=== PATIENT | male | born 1990 | race African-American/Black ===

== ENCOUNTER 2017-11-12 08:35 | Emergency (ER) | payer SELFPAY ==
[~2017-11-12] VITALS: Ht 162.5 cm; Wt 83.0 kg
[2017-11-12 08:35] VITALS: BP 159/96
[~2017-11-12 08:35] MED LIST: ZITHROMAX250 MG PO
[2017-11-12] MEDS ORDERED: AMOXICILLIN500 M2 PO (08:48)
== END 2017-11-12 09:00 | disposition home or self-care (01) ==
LOC: ED 08:35
DX: J02.9 Acute pharyngitis, unspecified (principal); J32.9 Chronic sinusitis, unspecified; Z88.8 Allergy status to other drugs, medicaments and biological substances; F17.200 Nicotine dependence, unspecified, uncomplicated

== ENCOUNTER 2018-05-29 17:17 | Emergency (ER) | payer SELFPAY ==
[~2018-05-29] VITALS: Ht 162.5 cm; Wt 86.2 kg
[~2018-05-29 17:17] MED LIST changes: +AMOXICILLIN500 M2 PO
[2018-05-29 17:20] VITALS: BP 139/72
[2018-05-29 19:08] LABS: BASO % 0.2 % (0.0-1.0); EOS # 0.2 10*3/uL (0.0-0.4); EOS % 1.5 % (1.0-4.0); HEMATOCRIT 44.3 % (42.0-52.0); HEMOGLOBIN 15.5 g/dl (14.0-18.0); LYMPH # 1.7 10*3/uL (1.3-4.4); LYMPH % 13.6 % (27.0-41.0); MEAN CELL VOLUME 79.2 fl (80.0-94.0); MEAN CORPUSCULAR HGB 27.7 pg (27.0-31.0); MEAN PLATELET VOLUME 8.8 fl (9.6-12.3); MONO # 0.6 10*3/uL (0.1-1.0); MONO % 5.3 % (3.0-9.0); NEUT # 9.6 10*3/uL (2.3-7.9); NEUT % 79.1 % (47.0-73.0); PLATELET COUNT AUTOMATED 303 10*3/uL (130-400); RED BLOOD COUNT 5.59 10*6/uL (4.50-5.90); RED CELL DISTRI WIDTH 14.1 % (0-14.5); WHITE BLOOD COUNT 12.1 10*3/uL (4.8-10.8)
[2018-05-29 19:23] LABS: ALBUMIN 3.8 gm/dl (3.1-4.5); ALKALINE PHOSPHATASE 54 U/L (45-117); BUN 16 mg/dl (7-24); CHLORIDE 105 mmol/L (98-107); CREATININE 1.27 mg/dL (0.70-1.30); LIPASE 72 U/L (73-393); POTASSIUM 4.4 mmol/L (3.5-5.1); SGOT/AST 16 IU/L (3-35); SGPT/ALT 35 U/L (12-78); SODIUM 141 mmol/L (136-145); TOTAL PROTEIN 7.7 gm/dL (6.4-8.2)
[2018-05-29] MEDS ORDERED: CYCLOBENZAPRINE5 M3 PO (19:45)
[2018-05-29] MEDS ORDERED: Motrin,Rufen800 MG PO (19:45)
== END 2018-05-29 20:00 | disposition home or self-care (01) ==
LOC: ED 17:17
PROVIDERS: Physician Assistant
DX: M54.6 Pain in thoracic spine (principal); Z88.8 Allergy status to other drugs, medicaments and biological substances

== ENCOUNTER 2018-05-31 23:38 | Inpatient (IN) | payer SELFPAY ==
--- NOTE | ~2018-05-31 | O ---
[place], [place] OPERATIVE NOTE NAME: VANESA DUMONT [facility] #: [id number] UNIT #: [id number] ROOM: [facility] DOCTOR: ADRIAN FERGUSON MD BIRTHDATE: [birth year] DOS: 06/01/2018 PREOPERATIVE DIAGNOSIS: Acute cholecystitis. POSTOPERATIVE DIAGNOSIS: Acute cholecystitis. PROCEDURE: Laparoscopic cholecystectomy. SURGEON: Adrian Ferguson MD [employer] INDUSTRIAL ENGINEER: CHRIS. ANESTHESIA: General with endotracheal intubation. INDICATIONS: This is a 28-year-old -[place] gentleman who was admitted with right upper quadrant abdominal pain and was found to have acute cholecystitis. It was decided to take the patient to the operating room for the above-mentioned procedure. The procedure and its complications were explained to the patient in detail preoperatively. Complications that were discussed included, but were not limited to bleeding, infection, hematoma/seroma/abscess formation, prolonged postoperative pain, biloma formation, inadvertent injury to common bile duct, and incisional hernia formation, he agreed to proceed. DESCRIPTION OF PROCEDURE: After identifying the patient, the patient was brought to the operating suite and laid in the supine position. After time-out procedure was called, general anesthesia was induced by the anesthesia team and the parts were then painted and draped in the usual sterile fashion. An incision below the umbilicus was made. The skin and the subcutaneous tissue were incised in the line of the incision. The fascia was incised and 2 stay sutures with 0 Vicryl were taken on either side. A 12 mm Denny port was introduced and a pneumoperitoneum was created. Under direct vision, an epigastric incision of 10 mm and two 5 mm incisions were made in the right upper quadrant and appropriate size ports were introduced. The gallbladder was retracted superiorly and laterally. There was a lot of edema and inflammation on the gallbladder and in order to better grasp the gallbladder, approximately 50 mL of bile was aspirated from the gallbladder. The gallbladder was then retracted superiorly and laterally. In order to better visualize the cystic duct and the cystic artery, the top-down procedure to mobilize the gallbladder was employed. Thereafter, the cystic artery and the cystic duct were meticulously dissected and each of these structures were clipped 3 times and cut between the first and the second clip. The gallbladder was then removed from the bed of the gallbladder with the help of electrocautery. It was placed in an EndoCatch bag and removed from the peritoneal cavity and sent for histopathological diagnosis. Saline was used for irrigation in the liver bed and hemostasis was achieved with the help of electrocautery. Thereafter, in order to have better hemostasis, strip of Surgicel was placed in the liver bed. After hemostasis was confirmed, the irrigation fluid was sucked away and again, there was no bleeding seen in the liver bed. Thereafter, under direct vision, the right upper quadrant and the epigastric ports were removed and there was no bleeding seen. The umbilical port was removed and the pneumoperitoneum was [place], [place] OPERATIVE NOTE NAME: VANESA DUMONT UNIT #: [id number] ROOM: [facility] DOCTOR: ADRIAN FERGUSON MD BIRTHDATE: [birth year] decompressed. The stay sutures were tied together and an additional 0 Vicryl suture was taken in a [id number] fashion to close the fascial defect. The edges of the skin were infiltrated with 1% plain lidocaine and approximated with the help of 4-0 Vicryl in a subcuticular running fashion. Dressings were placed on all the four incisions and the patient was extubated uneventfully and brought back to the recovery in a stable fashion. There were no complications. Blood loss was [address] Adrian Ferguson, the attending surgeon, was present throughout the operating case. Adrian Ferguson MD CM:OPRECORD:OPERATIVE NOTE [id number] ADRIAN FERGUSON MD 06/01/18 1140 interface
[~2018-05-31 23:38] MED LIST changes: +CYCLOBENZAPRINE5 M3 PO; +Motrin,Rufen800 MG PO
[2018-05-31 23:44] VITALS: BP 135/95
[2018-06-01] VITALS (11 sets, daily range): BP systolic 118–139; BP diastolic 56–84
[2018-06-01 00:26] LABS: HEMATOCRIT 42.3 % (42.0-52.0); HEMOGLOBIN 15.1 g/dl (14.0-18.0); MEAN CELL VOLUME 77.8 fl (80.0-94.0); MEAN CORPUSCULAR HGB 27.8 pg (27.0-31.0); MEAN CORPUSCULAR HGB CONC 35.7 g/dl (33.0-37.0); MEAN PLATELET VOLUME 9.3 fl (9.6-12.3); PLATELET COUNT AUTOMATED 276 10*3/uL (130-400); RED BLOOD COUNT 5.44 10*6/uL (4.50-5.90); RED CELL DISTRI WIDTH 13.8 % (0-14.5); WHITE BLOOD COUNT 16.3 10*3/uL (4.8-10.8)
[2018-06-01 00:40] LABS: ACT PARTIAL THROMBO TIME 28.6 SECONDS (20.8-31.5)
[2018-06-01 00:42] LABS: BILIRUBIN NEGATIVE (NEGATIVE); BLOOD NEGATIVE (NEGATIVE); CLARITY CLEAR (CLEAR); COLOR YELLOW (YELLOW); GLUCOSE NEGATIVE (NEGATIVE); KETONE NEGATIVE (NEGATIVE); LEUKO ESTERASE NEGATIVE (NEGATIVE); NITRITE NEGATIVE (NEGATIVE); SPECIFIC GRAVITY >= 1.030 (1.005-1.030)
[2018-06-01 00:43] LABS: ALBUMIN 3.4 gm/dl (3.1-4.5); ALKALINE PHOSPHATASE 67 U/L (45-117); BUN 13 mg/dl (7-24); CHLORIDE 104 mmol/L (98-107); CREATININE 1.18 mg/dL (0.70-1.30); LIPASE 56 U/L (73-393); SGOT/AST 36 IU/L (3-35); SGPT/ALT 91 U/L (12-78); SODIUM 136 mmol/L (136-145); TOTAL PROTEIN 7.8 gm/dL (6.4-8.2)
[2018-06-01 00:55] LABS: MUCOUS TRACE
[2018-06-01 01:02] LABS: ATYPICAL LYMPHS 1 % (0-0); PLATELET SUFFICIENCY NORMAL (NORMAL); TOTAL CELLS COUNTED 100 #CELLS
[2018-06-01 07:40] LABS: HEMATOCRIT 39.5 % (42.0-52.0); HEMOGLOBIN 14.1 g/dl (14.0-18.0); MEAN CELL VOLUME 77.9 fl (80.0-94.0); MEAN CORPUSCULAR HGB 27.8 pg (27.0-31.0); MEAN CORPUSCULAR HGB CONC 35.7 g/dl (33.0-37.0); MEAN PLATELET VOLUME 9.3 fl (9.6-12.3); PLATELET COUNT AUTOMATED 244 10*3/uL (130-400); RED BLOOD COUNT 5.07 10*6/uL (4.50-5.90); RED CELL DISTRI WIDTH 13.7 % (0-14.5); WHITE BLOOD COUNT 12.9 10*3/uL (4.8-10.8)
[2018-06-01 07:53] LABS: BUN 11 mg/dl (7-24); CHLORIDE 104 mmol/L (98-107); CHOLESTEROL 109 mg/dL (<200); CREATININE 1.13 mg/dL (0.70-1.30); HDL CHOLESTEROL 46 mg/dl (40-60); LDL CHOLESTEROL 50 mg/dL (9-159); PHOSPHOROUS 2.7 mg/dL (2.5-4.9); SODIUM 136 mmol/L (136-145); TRIGLYCERIDES 67 mg/dl (<150); VLDL CHOLESTEROL 13 mg/dL (6-40)
[2018-06-01 08:25] LABS: ATYPICAL LYMPHS 1 % (0-0); PLATELET SUFFICIENCY NORMAL (NORMAL); TOTAL CELLS COUNTED 100 #CELLS
[2018-06-02] VITALS: BP 142/83
[2018-06-02 07:11] LABS: HEMATOCRIT 35.8 % (42.0-52.0); HEMOGLOBIN 12.1 g/dl (14.0-18.0); MEAN CELL VOLUME 79.7 fl (80.0-94.0); MEAN CORPUSCULAR HGB 26.9 pg (27.0-31.0); MEAN CORPUSCULAR HGB CONC 33.8 g/dl (33.0-37.0); MEAN PLATELET VOLUME 9.3 fl (9.6-12.3); PLATELET COUNT AUTOMATED 234 10*3/uL (130-400); RED BLOOD COUNT 4.49 10*6/uL (4.50-5.90); RED CELL DISTRI WIDTH 13.9 % (0-14.5); WHITE BLOOD COUNT 17.6 10*3/uL (4.8-10.8)
[2018-06-02 07:44] LABS: ALBUMIN 2.9 gm/dl (3.1-4.5); BUN 14 mg/dl (7-24); CHLORIDE 109 mmol/L (98-107); CREATININE 1.13 mg/dL (0.70-1.30); PHOSPHOROUS 2.7 mg/dL (2.5-4.9); POTASSIUM 4.2 mmol/L (3.5-5.1); SGOT/AST 39 IU/L (3-35); SGPT/ALT 116 U/L (12-78); SODIUM 140 mmol/L (136-145)
[2018-06-02 07:46] LABS: ALKALINE PHOSPHATASE 77 U/L (45-117); TOTAL PROTEIN 6.6 gm/dL (6.4-8.2)
[2018-06-02 08:00] VITALS: BP 122/64
[2018-06-02 08:10] LABS: PLATELET SUFFICIENCY NORMAL (NORMAL); TOTAL CELLS COUNTED 100 #CELLS
[2018-06-02] MEDS ORDERED: NORCO 5-325 TA1 EACH PO (11:13)
== END 2018-06-02 14:34 | disposition home or self-care (01) | DRG 854 ==
LOC: ED 23:38 → EDHOLD 06-01 02:43 → 5E 06-01 03:12
PROVIDERS: Physician Assistant; Student in an Organized Health Care Education/Training Program; Surgery; ADMIT Emergency Medicine
PROC: 0FT44ZZ Resection of Gallbladder, Percutaneous Endoscopic Approach (ICD-10-PCS; principal; 2018-06-01)
DX: A41.9 Sepsis, unspecified organism (principal); K80.00 Calculus of gallbladder with acute cholecystitis without obstruction; R65.20 Severe sepsis without septic shock; R73.9 Hyperglycemia, unspecified; J45.20 Mild intermittent asthma, uncomplicated; Z88.8 Allergy status to other drugs, medicaments and biological substances; Z82.3 Family history of stroke; Z80.9 Family history of malignant neoplasm, unspecified; Z87.891 Personal history of nicotine dependence; Z82.5 Family history of asthma and other chronic lower respiratory diseases; Z83.49 Family history of other endocrine, nutritional and metabolic diseases; Z83.3 Family history of diabetes mellitus

== ENCOUNTER 2018-12-26 02:26 | Emergency (ER) | payer SELFPAY ==
[~2018-12-26] VITALS: Ht 162.5 cm; Wt 90.7 kg
[~2018-12-26 02:26] MED LIST changes: +NORCO 5-325 TA1 EACH PO
[2018-12-26 02:27] VITALS: BP 155/87
[2018-12-26 03:07] LABS: BASO # 0.1 10*3/uL (0.0-0.1); BASO % 0.4 % (0.0-1.0); EOS # 0.6 10*3/uL (0.0-0.4); EOS % 4.5 % (1.0-4.0); HEMATOCRIT 45.4 % (42.0-52.0); HEMOGLOBIN 15.8 g/dl (14.0-18.0); LYMPH # 3.6 10*3/uL (1.3-4.4); LYMPH % 27.5 % (27.0-41.0); MEAN CELL VOLUME 78.3 fl (80.0-94.0); MEAN CORPUSCULAR HGB 27.2 pg (27.0-31.0); MEAN CORPUSCULAR HGB CONC 34.8 g/dl (33.0-37.0); MEAN PLATELET VOLUME 9.2 fl (9.6-12.3); MONO # 0.9 10*3/uL (0.1-1.0); MONO % 7.2 % (3.0-9.0); NEUT # 7.8 10*3/uL (2.3-7.9); NEUT % 60.1 % (47.0-73.0); PLATELET COUNT AUTOMATED 328 10*3/uL (130-400)
[2018-12-26 03:18] LABS: BUN 11 mg/dl (7-24); CHLORIDE 107 mmol/L (98-107); CREATININE 1.24 mg/dL (0.70-1.30); POTASSIUM 4.3 mmol/L (3.5-5.1); SODIUM 140 mmol/L (136-145)
[2018-12-26] MEDS ORDERED: PROAIR HFA8.5 GM INH (04:25)
[2018-12-26] MEDS ORDERED: AVPAK AZITHROM250 M1 PO (04:25)
[2018-12-26] MEDS ORDERED: PREDNISONE50 MG PO (04:25)
== END 2018-12-26 04:42 | disposition home or self-care (01) ==
LOC: ED 02:26
PROVIDERS: Internal Medicine
DX: J45.909 Unspecified asthma, uncomplicated (principal); Z88.8 Allergy status to other drugs, medicaments and biological substances; Z87.891 Personal history of nicotine dependence

== ENCOUNTER → 2020-07-28 | Outpatient (CLI) | payer BC ==
[~2020-07-28] MED LIST changes: +AVPAK AZITHROM250 M1 PO; +PREDNISONE50 MG PO; +PROAIR HFA8.5 GM INH
== END | disposition home or self-care (01) ==
LOC: COVID19 14:59
PROVIDERS: ATTEND Internal Medicine
DX: Z20.822 Contact with and (suspected) exposure to COVID-19 (principal)

== ENCOUNTER 2020-10-14 22:41 | Emergency (ER) | payer BC ==
[~2020-10-14] VITALS: Wt 93.0 kg
[2020-10-14 22:44] VITALS: BP 141/89
[2020-10-14] MEDS ORDERED: PREDNISONE10 M1 PO (23:46)
== END 2020-10-15 00:11 | disposition home or self-care (01) ==
LOC: ED 22:41
DX: J45.901 Unspecified asthma with (acute) exacerbation (principal); Z88.8 Allergy status to other drugs, medicaments and biological substances; Z98.890 Other specified postprocedural states

== ENCOUNTER 2021-06-15 21:07 | Emergency (ER) | payer BC ==
[~2021-06-15] VITALS: Ht 160 cm; Wt 90.7 kg
[~2021-06-15 21:07] MED LIST changes: +PREDNISONE10 M1 PO
[2021-06-15 21:28] VITALS: BP 136/85
[2021-06-15] MEDS ORDERED: PENICILLIN VK500 MG PO (21:39)
== END 2021-06-15 22:05 | disposition home or self-care (01) ==
LOC: ED 21:07
DX: K04.7 Periapical abscess without sinus (principal); K02.9 Dental caries, unspecified; Z88.8 Allergy status to other drugs, medicaments and biological substances; Z90.49 Acquired absence of other specified parts of digestive tract; Z87.891 Personal history of nicotine dependence

== ENCOUNTER 2021-06-17 18:18 | Emergency (ER) | payer BC ==
[~2021-06-17] VITALS: Wt 90.7 kg
[~2021-06-17 18:18] MED LIST changes: +PENICILLIN VK500 MG PO
[2021-06-17 18:38] VITALS: BP 136/101
== END 2021-06-17 19:04 | disposition home or self-care (01) ==
LOC: ED 18:18
DX: S02.5XXA Fracture of tooth (traumatic), initial encounter for closed fracture (principal); Z88.8 Allergy status to other drugs, medicaments and biological substances; Z87.891 Personal history of nicotine dependence; X58.XXXA Exposure to other specified factors, initial encounter; Y93.89 Activity, other specified; Y92.89 Other specified places as the place of occurrence of the external cause; Y99.8 Other external cause status

== ENCOUNTER 2022-03-30 09:55 | Emergency (ER) | payer SELFPAY ==
[~2022-03-30] VITALS: Ht 160 cm; Wt 91.2 kg
[2022-03-30 10:11] VITALS: BP 127/88
[2022-03-30 11:42] LABS: BASO % 0.3 % (0.0-1.0); EOS # 0.3 10*3/uL (0.0-0.4); EOS % 2.8 % (1.0-4.0); HEMATOCRIT 43.8 % (42.0-52.0); LYMPH # 0.8 10*3/uL (1.3-4.4); LYMPH % 8.4 % (27.0-41.0); MEAN CELL VOLUME 76.7 fl (80.0-94.0); MEAN CORPUSCULAR HGB 26.6 pg (27.0-31.0); MEAN CORPUSCULAR HGB CONC 34.7 g/dl (33.0-37.0); MONO # 0.7 10*3/uL (0.1-1.0); MONO % 7.1 % (3.0-9.0); NEUT # 8.1 10*3/uL (2.3-7.9); NEUT % 81.1 % (47.0-73.0); PLATELET COUNT AUTOMATED 283 10*3/uL (130-400); RED BLOOD COUNT 5.71 10*6/uL (4.50-5.90); WHITE BLOOD COUNT 9.9 10*3/uL (4.8-10.8)
[2022-03-30 11:53] LABS: ACT PARTIAL THROMBO TIME 27.1 SECONDS (20.0-32.1)
[2022-03-30 11:56] LABS: ALKALINE PHOSPHATASE 58 U/L (46-116); BUN 7 mg/dl (9-23); CHLORIDE 105 mmol/L (98-107); CREATININE 1.25 mg/dL (0.70-1.30); POTASSIUM 3.7 mmol/L (3.4-5.1); SGPT/ALT 16 U/L (10-49); SODIUM 138 mmol/L (136-145)
[2022-03-30] MEDS ORDERED: PROVENTIL HFA6.7 GM INH (13:18)
[2022-03-30] MEDS ORDERED: AEROECLIPSE II1 EACH MC (13:18)
[2022-03-30] MEDS ORDERED: VENTOLIN 02.5 MG/3 M INH (13:18)
[2022-03-30] MEDS ORDERED: PREDNISONE50 MG PO (13:18)
== END 2022-03-30 13:35 | disposition home or self-care (01) ==
LOC: ED 09:55
PROVIDERS: Emergency Medicine
DX: B34.9 Viral infection, unspecified (principal); Z20.822 Contact with and (suspected) exposure to COVID-19; J45.901 Unspecified asthma with (acute) exacerbation; Z87.891 Personal history of nicotine dependence; Z90.49 Acquired absence of other specified parts of digestive tract; Z88.8 Allergy status to other drugs, medicaments and biological substances

== ENCOUNTER 2022-03-31 05:36 | Inpatient (IN) | payer SELFPAY ==
[2022-03-31] VITALS (8 sets, daily range): BP systolic 128–147; BP diastolic 66–81
[~2022-03-31] VITALS: Ht 160 cm; Wt 95.4 kg
[~2022-03-31 05:36] MED LIST changes: +AEROECLIPSE II1 EACH MC; +PROVENTIL HFA6.7 GM INH; +VENTOLIN 02.5 MG/3 M INH
[2022-03-31 06:45] LABS: BASO % 0.2 % (0.0-1.0); LYMPH # 0.6 10*3/uL (1.3-4.4); LYMPH % 5.6 % (27.0-41.0); MEAN CELL VOLUME 77.9 fl (80.0-94.0); MEAN CORPUSCULAR HGB 26.8 pg (27.0-31.0); MEAN CORPUSCULAR HGB CONC 34.4 g/dl (33.0-37.0); MEAN PLATELET VOLUME 9.2 fl (9.6-12.3); MONO # 1.1 10*3/uL (0.1-1.0); MONO % 9.9 % (3.0-9.0); NEUT # 9.1 10*3/uL (2.3-7.9); PLATELET COUNT AUTOMATED 277 10*3/uL (130-400); RED BLOOD COUNT 5.78 10*6/uL (4.50-5.90); WHITE BLOOD COUNT 10.9 10*3/uL (4.8-10.8)
[2022-03-31 07:30] LABS: ABG BASE EXCESS -1.2 mmol/L (-2.0-2.0); ARTERIAL BLOOD GAS PH 7.393 (7.35-7.45); ARTERIAL BLOOD GAS PO2 66.5 (80-90)
[2022-03-31 08:09] LABS: ALKALINE PHOSPHATASE 55 U/L (46-116); BUN 9 mg/dl (9-23); CHLORIDE 103 mmol/L (98-107); CREATININE 1.33 mg/dL (0.70-1.30); POTASSIUM 3.6 mmol/L (3.4-5.1); SGPT/ALT 26 U/L (10-49); SODIUM 139 mmol/L (136-145)
[2022-03-31 08:10] LABS: TOTAL PROTEIN 7.6 gm/dL (6.0-8.0)
[2022-03-31 18:57] LABS: ABG BASE EXCESS -3.5 mmol/L (-2.0-2.0); ARTERIAL BLOOD GAS PH 7.345 (7.35-7.45); ARTERIAL BLOOD GAS PO2 136.1 (80-90)
[2022-04-01] VITALS: BP 138/75
[2022-04-01 04:00] VITALS: BP 120/67
[2022-04-01 06:00] LABS: BASO % 0.1 % (0.0-1.0); HEMATOCRIT 41.3 % (42.0-52.0); LYMPH # 0.8 10*3/uL (1.3-4.4); LYMPH % 5.9 % (27.0-41.0); MEAN CELL VOLUME 78.4 fl (80.0-94.0); MEAN CORPUSCULAR HGB 26.9 pg (27.0-31.0); MEAN CORPUSCULAR HGB CONC 34.4 g/dl (33.0-37.0); MEAN PLATELET VOLUME 9.2 fl (9.6-12.3); MONO # 0.9 10*3/uL (0.1-1.0); MONO % 6.5 % (3.0-9.0); NEUT # 11.8 10*3/uL (2.3-7.9); NEUT % 87.2 % (47.0-73.0); PLATELET COUNT AUTOMATED 269 10*3/uL (130-400); RED BLOOD COUNT 5.27 10*6/uL (4.50-5.90); RED CELL DISTRI WIDTH 14.4 % (0-14.5); WHITE BLOOD COUNT 13.6 10*3/uL (4.8-10.8)
[2022-04-01 06:05] LABS: CHLORIDE 107 mmol/L (98-107); SODIUM 137 mmol/L (136-145)
[2022-04-01 06:11] LABS: BUN 11 mg/dl (9-23); TRIGLYCERIDES 47 mg/dl (<150)
[2022-04-01 06:13] LABS: CHOLESTEROL 93 mg/dL (<200); LDL CHOLESTEROL 45 mg/dL (9-159)
[2022-04-01 06:22] LABS: POTASSIUM 4.8 mmol/L (3.4-5.1)
[2022-04-01 08:00] VITALS: BP 123/80
[2022-04-01 09:08] LABS: ARTERIAL BLOOD GAS PH 7.342 (7.35-7.45); ARTERIAL BLOOD GAS PO2 122.7 (80-90)
[2022-04-01 12:00] VITALS: BP 122/61
[2022-04-01 16:00] VITALS: BP 106/51
[2022-04-01 20:00] VITALS: BP 124/80
[2022-04-02] VITALS: BP 118/70
[2022-04-02 04:00] VITALS: BP 120/62
[2022-04-02 05:58] LABS: BASO % 0.1 % (0.0-1.0); HEMATOCRIT 42.5 % (42.0-52.0); LYMPH # 0.9 10*3/uL (1.3-4.4); LYMPH % 5.6 % (27.0-41.0); MEAN CORPUSCULAR HGB 27.1 pg (27.0-31.0); MEAN CORPUSCULAR HGB CONC 33.9 g/dl (33.0-37.0); MEAN PLATELET VOLUME 9.9 fl (9.6-12.3); MONO # 0.7 10*3/uL (0.1-1.0); MONO % 4.7 % (3.0-9.0); NEUT # 13.9 10*3/uL (2.3-7.9); NEUT % 89.2 % (47.0-73.0); PLATELET COUNT AUTOMATED 281 10*3/uL (130-400); RED BLOOD COUNT 5.31 10*6/uL (4.50-5.90); RED CELL DISTRI WIDTH 14.6 % (0-14.5); WHITE BLOOD COUNT 15.6 10*3/uL (4.8-10.8)
[2022-04-02 06:16] LABS: ALKALINE PHOSPHATASE 42 U/L (46-116); BUN 16 mg/dl (9-23); CHLORIDE 104 mmol/L (98-107); CREATININE 0.98 mg/dL (0.70-1.30); POTASSIUM 4.6 mmol/L (3.4-5.1); SGPT/ALT 20 U/L (10-49); SODIUM 139 mmol/L (136-145); TOTAL PROTEIN 6.4 gm/dL (6.0-8.0)
[2022-04-02 08:00] VITALS: BP 110/60
[2022-04-02 08:04] LABS: IMMUNOGLOBULIN G, QNT 1061 mg/dL (603-1613); IMMUNOGLOBULIN M, QNT 78 mg/dL (20-172)
[2022-04-02 12:00] VITALS: BP 122/79
[2022-04-02 16:00] VITALS: BP 136/81
[2022-04-02 20:00] VITALS: BP 132/73
[2022-04-03] VITALS: BP 121/82
[2022-04-03 05:49] LABS: CHLORIDE 103 mmol/L (98-107); POTASSIUM 4.3 mmol/L (3.4-5.1); SODIUM 136 mmol/L (136-145)
[2022-04-03 05:55] LABS: BUN 17 mg/dl (9-23); CREATININE 1.05 mg/dL (0.70-1.30)
[2022-04-03 06:30] LABS: BASO % 0.2 % (0.0-1.0); HEMATOCRIT 42.6 % (42.0-52.0); LYMPH % 7.9 % (27.0-41.0); MEAN CELL VOLUME 77.5 fl (80.0-94.0); MEAN CORPUSCULAR HGB 26.9 pg (27.0-31.0); MEAN CORPUSCULAR HGB CONC 34.7 g/dl (33.0-37.0); MEAN PLATELET VOLUME 9.2 fl (9.6-12.3); MONO # 0.8 10*3/uL (0.1-1.0); MONO % 6.1 % (3.0-9.0); NEUT # 11.2 10*3/uL (2.3-7.9); NEUT % 85.5 % (47.0-73.0); PLATELET COUNT AUTOMATED 307 10*3/uL (130-400); RED CELL DISTRI WIDTH 14.2 % (0-14.5); WHITE BLOOD COUNT 13.1 10*3/uL (4.8-10.8)
[2022-04-03 08:01] VITALS: BP 134/86
[2022-04-03 12:00] VITALS: BP 127/74
[2022-04-03 16:00] VITALS: BP 132/57
[2022-04-03 20:00] VITALS: BP 139/88
[2022-04-04] VITALS: BP 126/79
[2022-04-04 06:21] LABS: BASO % 0.2 % (0.0-1.0); HEMATOCRIT 43.1 % (42.0-52.0); LYMPH # 1.6 10*3/uL (1.3-4.4); LYMPH % 15.1 % (27.0-41.0); MEAN CELL VOLUME 77.7 fl (80.0-94.0); MEAN CORPUSCULAR HGB 27.2 pg (27.0-31.0); MEAN PLATELET VOLUME 9.4 fl (9.6-12.3); MONO # 0.6 10*3/uL (0.1-1.0); MONO % 5.6 % (3.0-9.0); NEUT # 8.3 10*3/uL (2.3-7.9); NEUT % 78.4 % (47.0-73.0); PLATELET COUNT AUTOMATED 272 10*3/uL (130-400); RED BLOOD COUNT 5.55 10*6/uL (4.50-5.90); WHITE BLOOD COUNT 10.6 10*3/uL (4.8-10.8)
[2022-04-04 06:29] LABS: CHLORIDE 101 mmol/L (98-107); SODIUM 138 mmol/L (136-145)
[2022-04-04 06:34] LABS: CREATININE 1.15 mg/dL (0.70-1.30)
[2022-04-04 06:35] LABS: BUN 18 mg/dl (9-23)
[2022-04-04 08:00] VITALS: BP 116/61
[2022-04-04 12:00] VITALS: BP 135/77
[2022-04-04 15:07] LABS: MYCOPLASMA PNEUMONIAE IGG 173 U/mL (0-99); MYCOPLASMA PNEUMONIAE IGM <770 U/mL (0-769)
[2022-04-04 16:00] VITALS: BP 136/74
[2022-04-04 16:07] LABS: MYCOPLASMA PNEUMONIAE IGG 106 U/mL (0-99); MYCOPLASMA PNEUMONIAE IGM <770 U/mL (0-769)
[2022-04-04 20:00] VITALS: BP 124/63
[2022-04-05] VITALS: BP 151/81
[2022-04-05 00:06] LABS: PARAINFLUENZA 1 CF 1:16 (Neg:<1:8); PARAINFLUENZA 2 CF 1:16 (Neg:<1:8); PARAINFLUENZA 3 CF 1:16 (Neg:<1:8)
[2022-04-05 06:37] LABS: HEMATOCRIT 45.3 % (42.0-52.0); MEAN CELL VOLUME 77.8 fl (80.0-94.0); MEAN CORPUSCULAR HGB 27.1 pg (27.0-31.0); MEAN CORPUSCULAR HGB CONC 34.9 g/dl (33.0-37.0); MEAN PLATELET VOLUME 9.3 fl (9.6-12.3); PLATELET COUNT AUTOMATED 284 10*3/uL (130-400); RED BLOOD COUNT 5.82 10*6/uL (4.50-5.90); WHITE BLOOD COUNT 14.5 10*3/uL (4.8-10.8)
[2022-04-05 06:38] LABS: MANUAL DIFF REFLEX YES
[2022-04-05 06:41] LABS: BUN 17 mg/dl (9-23); CHLORIDE 105 mmol/L (98-107); CREATININE 1.05 mg/dL (0.70-1.30); POTASSIUM 3.7 mmol/L (3.4-5.1); SODIUM 138 mmol/L (136-145)
[2022-04-05 07:21] LABS: ATYPICAL LYMPHS 2 % (0-0); MICROCYTOSIS SLIGHT; OVALOCYTES FEW; PLATELET SUFFICIENCY NORMAL (NORMAL); POLYCHROMASIA SLIGHT; TOTAL CELLS COUNTED 100 #CELLS
[2022-04-05 08:00] VITALS: BP 134/78
[2022-04-05 12:13] VITALS: BP 104/69
[2022-04-05 16:00] VITALS: BP 124/63
[2022-04-05 20:00] VITALS: BP 136/69
[2022-04-06] VITALS: BP 133/72
[2022-04-06 08:00] VITALS: BP 128/82
[2022-04-06 13:00] VITALS: BP 129/74
[2022-04-06] MEDS ORDERED: METOPROLOL SUCC25 M2 PO (15:50)
[2022-04-06] MEDS ORDERED: PROVENTIL HFA6.7 GM INH (15:50)
[2022-04-06] MEDS ORDERED: PREDNISONE10 MG PO (15:50)
[2022-04-06] MEDS ORDERED: DOXYCYCLINE HY100 M3 PO (15:50)
[2022-04-06] MEDS ORDERED: ATORVASTATIN CA40 M1 PO (15:50)
[2022-04-06] MEDS ORDERED: ASPIRIN ADULT L81 M2 PO (15:50)
[2022-04-06 16:00] VITALS: BP 122/79
== END 2022-04-06 17:11 | disposition home or self-care (01) | DRG 871 ==
LOC: ED 05:36 → ICCU 09:12 → EDHOLD 09:12 → ICCU 14:38 → 4E 04-02 10:37 → ICCU 04-02 10:46 → 4E 04-02 17:06
PROVIDERS: Emergency Medicine; Internal Medicine; Internal Medicine Cardiovascular Disease; Internal Medicine Critical Care Medicine; Student in an Organized Health Care Education/Training Program; ADMIT Internal Medicine; ATTEND Internal Medicine
PROC: 5A09357 Assistance with Respiratory Ventilation, Less than 24 Consecutive Hours, Continuous Positive Airway Pressure (ICD-10-PCS; 2022-04-01)
PROC: 4A02XM4 Measurement of Cardiac Total Activity, External Approach (ICD-10-PCS; principal; 2022-04-06)
PROC: 3E073KZ Introduction of Other Diagnostic Substance into Coronary Artery, Percutaneous Approach (ICD-10-PCS; 2022-04-06)
DX: A41.9 Sepsis, unspecified organism (principal); I21.4 Non-ST elevation (NSTEMI) myocardial infarction; J18.9 Pneumonia, unspecified organism; J96.01 Acute respiratory failure with hypoxia; N17.0 Acute kidney failure with tubular necrosis; J45.51 Severe persistent asthma with (acute) exacerbation; E87.20 Acidosis, unspecified; R65.20 Severe sepsis without septic shock; R73.9 Hyperglycemia, unspecified; Z20.822 Contact with and (suspected) exposure to COVID-19; E66.9 Obesity, unspecified; F17.290 Nicotine dependence, other tobacco product, uncomplicated; Z88.8 Allergy status to other drugs, medicaments and biological substances; Z90.49 Acquired absence of other specified parts of digestive tract; Z82.5 Family history of asthma and other chronic lower respiratory diseases; Z83.3 Family history of diabetes mellitus; Z71.6 Tobacco abuse counseling; Z68.37 Body mass index [BMI] 37.0-37.9, adult